=== PATIENT | female | born 1980 | race Caucasian/White ===

== ENCOUNTER 2018-10-18 15:11 | Observation (INO) | payer OTHER ==
[~2018-10-18] VITALS: Ht 170.2 cm; Wt 70.4 kg
[2018-10-18] MEDS ORDERED: SODIUM CHLORIDE 0.9% 1000ML 1,000 ML IV STA (15:29)
[2018-10-18] MEDS ORDERED: MORPHINE SULFATE INJ 4 MG/ML INJ 1ML IV ONE (16:00)
[2018-10-18] MEDS ORDERED: ONDANSETRON HCL INJ 2MG/ML 2ML 2 MG/ML VIAL IV ONE (16:00)
[2018-10-18] MEDS ORDERED: ASPIRIN 81 MG CHEW TAB PO ONE (16:00)
--- NOTE | 2018-10-18 16:25 | Diagnostic Imaging Report ---
EXAMINATION: CHEST SINGLE (PORTABLE) INDICATION: ^ERMD ORDER ^[id number] ^1552 ^Y COMPARISON: None FINDINGS: AP view TUBES and LINES: None. LUNGS: Lungs are well inflated. There is no evidence of pneumonia or pulmonary edema. PLEURA: No pleural effusion or pneumothorax. HEART AND MEDIASTINUM: The cardiomediastinal silhouette is unremarkable. BONES AND SOFT TISSUES: No acute osseous lesion. Soft tissues are unremarkable. UPPER ABDOMEN: No free air under the diaphragm. IMPRESSION: No acute thoracic abnormality. Signed by: Dr. Renato Dee MD on 10/18/2018 4:21 PM
[2018-10-18 16:28] LABS: BASOPHILS # (AUTO) 0.1 (0.0-0.1); BASOPHILS % 0.5 % (0.0-1.0); EOSINOPHILS # (AUTO) 0.3 (0.0-0.4); EOSINOPHILS % 2.3 % (0.0-6.0); HEMATOCRIT 40.5 % (34.2-44.1); HEMOGLOBIN 13.2 g/dL (12.0-16.0); LYMPHOCYTES # (AUTO) 4.8 (1.0-3.2); LYMPHOCYTES % 38.9 % (18.0-39.1); MEAN CORPUSCULAR HGB CONC 32.6 g/dL (31-35); MEAN CORPUSCULAR VOLUME 95.1 fL (81-99); MONOCYTES % 8.5 % (4.4-11.3); NEUTROPHILS # (AUTO) 6.1 (2.1-6.9); NEUTROPHILS % 49.2 % (38.7-80.0); PLATELET COUNT 439 x10e3/uL (140-360); RED BLOOD COUNT 4.26 x10e6/uL (3.6-5.1); RED CELL DISTRIBUTION WIDTH 11.9 % (11.7-14.4)
[2018-10-18 16:40] LABS: INR 0.79; PARTIAL THROMBOPLASTIN TIME 24.8 seconds (23.8-35.5); PROTHROMBIN TIME 11.4 seconds (11.9-14.5)
[2018-10-18 16:44] LABS: ALANINE AMINOTRANSFERASE 16 IU/L (0-55); ALBUMIN/GLOBULIN RATIO 1.2 (0.8-2.0); ALKALINE PHOSPHATASE 74 IU/L (40-150); ANION GAP 10.6 mmol/L (8-16); BLOOD UREA NITROGEN 10 mg/dL (7-26); BUN/CREATININE RATIO 13 (6-25); CALCIUM 9.7 mg/dL (8.4-10.2); CARBON DIOXIDE 25 mmol/L (22-29); CHLORIDE 107 mmol/L (98-107); CREATINE KINASE 54 IU/L (29-168); CREATININE, SERUM 0.78 mg/dL (0.57-1.11); EST GLOMERULAR FILTRATION RATE > 60 ML/MIN (60-); GLUCOSE 91 mg/dL (74-118); POTASSIUM 3.6 mmol/L (3.5-5.1); SODIUM 139 mmol/L (136-145)
[2018-10-18 16:45] LABS: BILIRUBIN,URINE NEGATIVE (NEGATIVE); CLARITY,URINE CLEAR (CLEAR); COLOR,URINE STRAW (YELLOW); KETONES,URINE NEGATIVE (NEGATIVE); LEUKOCYTE ESTERASE ,URINE NEGATIVE (NEGATIVE); NITRITE,URINE NEGATIVE (NEGATIVE); PREGNANCY TEST, URINE NEGATIVE (NEGATIVE); PROTEIN,URINE DIPSTICK NEGATIVE (NEGATIVE); URINE UROBILINOGEN 0.2 mg/dL (0.2 - 1)
[2018-10-18 17:09] LABS: THYROID STIMULATING HORMONE 0.459 uIU/mL (0.350-4.940)
--- NOTE | 2018-10-18 17:22 | NUR ---
Dewayne Bliss, GATE OPERATOR notified of pt's left side dropping, positive left arm drift, and left arm weakness. Pt's legs bilaterally are not noted to have weakness at this time. Pt reports having numbness in her left foot. Addendum: 10/18/18 at 1729 by MARIA DEL ROSARIO Left side facial drooping
[2018-10-18 17:48] LABS: EPITHELIAL CELLS,URINE MANY /LPF; WBC,URINE (MAN) 0-5 /HPF (0-5)
--- NOTE | 2018-10-18 18:36 | NUR ---
Pt is resting in bed comfortably; texting on her phone in her room at this time.
[2018-10-18] MEDS ORDERED: SODIUM CHLORIDE 0.9% 100 ML 100 ML ONE (18:43)
[2018-10-18] MEDS ORDERED: IOPAMIDOL 370 MG/ML 200 ML INFUS..BTL INJ ONE (18:44)
[2018-10-18] MEDS ORDERED: ONDANSETRON HCL INJ 2MG/ML 2ML 2 MG/ML VIAL IV PRN (19:00)
[2018-10-18] MEDS ORDERED: MORPHINE SULFATE INJ 4 MG/ML INJ 1ML IV PRN (19:00)
--- NOTE | 2018-10-18 19:09 | Diagnostic Imaging Report ---
Exam: Head CT without contrast History: Numbness, left facial droop Comparison studies: None Technique: Axial images were obtained from the skull base to the vertex. Coronal and sagittal images reconstructed from the axial data. Dose modulation, iterative reconstruction, and/or weight based adjustment of the mA/kV was utilized to reduce the radiation dose to as low as reasonably achievable. Radiation dose: Total DLP: 921 mGy*cm. Estimated effective dose: DLP x 0.015 Intravenous contrast: None Findings: Scalp: No abnormalities. Bones: No fractures, blastic or lytic lesions. Brain sulci: Appropriate for age. Ventricles: Normal in size and configuration. No hydrocephalus. Extra-axial spaces: No masses, no fluid collection. Parenchyma: No abnormal densities. No masses, hemorrhage, acute or chronic vascular insults. Sellar/suprasellar region: No abnormalities. Craniocervical junction: Patent foramen magnum. No Chiari one malformation. IMPRESSION: No acute intracranial abnormalities. Signed by: Dr. Hugo Perez M.D. on 10/18/2018 7:06 PM
--- OUTSIDE RECORDS SUMMARY | 2018-10-18 19:18 | XMS REPORT ---
Author Author [facility] Address Unknown Phone Unavailable Care Team Providers Care Brim Buster Name Role Phone Milagro ROD Unavailable Unavailable Problems This patient has no known problems. Allergies, Adverse Reactions, Alerts This patient has no known allergies or adverse reactions. Medications This patient has no known medications. Results Test Description Test Time Test Comments Text Results Atomic Results Result Comments CT BRAIN WO 2018-10-18 19:03:00 [facility] [address] [address] Patient Name: SIS CIFUENTES MR #: [id number] : 1980 Age/Sex: 38/F Req #: [id number] Adm Physician: Ordered by: OSMAN PANCHAL ETL TESTER Report #: [id number] Location: ER Room/Bed: Procedure: [id number] CT/CT BRAIN WO Exam Date: 10/18/18 Exam Time: 1730 REPORT STATUS: Signed Exam: Head CT without contrast History: Numbness, left facial droop Comparison studies: None Technique: Axial images were obtained from the skull base to the vertex. Coronal and sagittal images reconstructed from the axial data. Dose modulation, iterative reconstruction, and/or weight based adjustment of the mA/kV was utilized to reduce the radiation dose to as low as reasonably achievable. Radiation dose: Total DLP: 921 mGy*cm. Estimated effective dose: DLP x 0.015 Intravenous contrast: None Findings: Scalp: No abnormalities. Bones: No fractures, blastic or lytic lesions. Brain sulci: Appropriate for age. Ventricles: Normal in size and configuration. No hydrocephalus. Extra-axial spaces: No masses, no fluid collection. Parenchyma: No abnormal densities. No masses, hemorrhage, acute or chronic vascular insults. Sellar/suprasellar region: No abnormalities. Craniocervical junction: Patent foramen magnum. No Chiari one malformation. IMPRESSION: No acute intracranial abnormalities. Signed by: Dr. Mohit Perez M.D. on 10/18/2018 7:06 PM Dictated By: MOHIT PEREZ MD 05 Transcribed By: DEMETRI on 10/18/181905 COPY TO: OSMAN PANCHAL NP CHEST SINGLE (PORTABLE) 2018-10-18 16:21:00 [address] [address] Patient Name: SIS CIFUENTES MR #: [id number] : 1980 Age/Sex: 38/F Req #: [id number] Adm Physician: Ordered by: OSMAN PANCHAL ETL TESTER Report #: [id number] Location: ER Room/Bed: Procedure: [id number] DX/CHEST SINGLE (PORTABLE) Exam Date: 10/18/18 Exam Time: 1552 REPORT STATUS: Signed EXAMINATION: CHEST SINGLE (PORTABLE) INDICA TION: ERMD ORDER [id number] 1552 Y COMPARISON: None FINDINGS: AP view TUBES and LINES: None. LUNGS: Lungs are well inflated. There is no evidence of pneumonia or pulmonary edema. PLEURA: No pleural effusion or pneumothorax. HEART AND MEDIASTINUM: The cardiomediastinal silhouette is unremarkable. BONES AND SOFT TISSUES: No acute osseous lesion. Soft tissues are unremarkable. UPPER ABDOMEN: No free air under the diaphragm. IMPRESSION: No acute thoracic abnormality. Signed by: Dr. Renato Cabrera MD on 10/18/2018 4:21 PM Dictated By: RENATO CABRERA MD 162 Transcribed By: DEMETRI on 10/18/181620 COPY TO: OSMAN PANCHAL NP
--- NOTE | 2018-10-18 19:25 | NUR ---
Right AC 18 g catheter removed per pt request, without incident.
[2018-10-18] MEDS: NITROGLYCERIN 0.4 MG SUBL SL PRN (19:28)
[2018-10-18 19:32] LABS: AMPHETAMINES SCREEN,URINE NEGATIVE (NEGATIVE); BENZODIAZEPINES SCREEN,URINE NEGATIVE (NEGATIVE); PHENCYCLIDINE SCREEN,URINE NEGATIVE (NEGATIVE)
--- NOTE | 2018-10-18 19:45 | Diagnostic Imaging Report ---
EXAM: CTA of the Thoracic Aorta WITH Contrast INDICATION: Chest pain. Numbness. Facial droop. ^cp COMPARISON: None. TECHNIQUE: Multi-detector CT technology was employed. CTA nongated axial imaging of the chest was performed after the administration of IV contrast. IV CONTRAST: 100 mL Isovue-370 ORAL CONTRAST: None COMPLICATIONS: None RADIATION DOSE: Total DLP: 850.04 mGy*cm Estimated effective dose: (DLP x 0.015 x size factor) mSv Dose modulation, iterative reconstruction, and/or weight based adjustment of the mA/kV was utilized to reduce the radiation dose to as low as reasonably achievable. For optimization of anatomic evaluation, multiplanar reconstruction, maximum intensity projections, and advanced 3-D off-line postprocessing were performed on a dedicated stand-alone workstation under the direct supervision of the interpreting physician. FINDINGS: Potential study limitations: None. LINES/ TUBES: None. VASCULAR WITH ADVANCED 3-D OFF-LINE POSTPROCESSING: Aortic valve morphology is trileaflet and contains no calcifications. The thoracic aorta is normal in course, caliber, and contour. There is no acute aortic pathology, such as dissection, intramural hematoma, or contained rupture. Aortic plaques: None. The arch vessel branching pattern with left vertebral artery arising from the aortic arch. All of the arch branch vessels appear widely patent in their proximal portions. Beer Runner dimensions of the thoracic aorta are as follows: 2.4 cm at the aortic annulus 3.2 cm at the sinuses of Valsalva (the sinotubular junction is preserved) 3 cm at the mid ascending aorta 2.9 cm at the distal ascending aorta 2.5 cm at the mid transverse arch 2.6 cm at the proximal descending thoracic aorta 2.4 cm at the diaphragmatic hiatus. LUNGS AND AIRWAYS: Lungs are clear. Airways are patent. PLEURA: The pleural spaces are clear.. HEART AND MEDIASTINUM: Heterogeneous thyroid with nodules. No mediastinal, hilar or axillary lymphadenopathy. The main pulmonary artery is normal in size. The cardiac chambers demonstrate normal atrioventricular and ventriculoarterial concordance, and systemic and pulmonary venous return. The cardiac chambers are normal in size. The coronary arteries have normal origins and courses. There are no distinct coronary calcifications identified, though this study was not optimized for coronary artery evaluation. There is no pericardial effusion. LIMITED ABDOMEN: The limited images of the upper abdomen reveal no abnormalities of the visualized organs. Accessory left hepatic artery arising from the left gastric artery. Accessory left renal artery. BONES: No acute abnormalities. IMPRESSION: Normal thoracic aorta. There is no acute aortic pathology. No acute thoracic abnormalities. Thyroid nodules which may be further evaluated with nonemergent thyroid ultrasound. Signed by: DR. Slim Grey MD on 10/18/2018 7:41 PM
[2018-10-18] MEDS ORDERED: NITROGLYCERIN 2% OINT 1 GM PKT TOP ONE (20:00)
[2018-10-18] MEDS: FAMOTIDINE 20 MG/2 ML VIAL IV SCH (20:26)
[2018-10-18 20:40] VITALS: BP 137/92
--- NOTE | 2018-10-18 20:40 | NUR ---
Got report from CATY Palmer nurse. Patient came via stretcher and walked from stretcher to bed. at bedside. Call light within reach.
--- NOTE | 2018-10-18 21:24 | NUR ---
Dr. Viera came to see patient and talked to the patient. He placed an order for ECHO and Carotid and Lipitor [address] Ko. Dr. Damian talked to Dr. Ko about neuro consult.
[2018-10-19] VITALS (7 sets, daily range): BP systolic 111–126; BP diastolic 66–87
[2018-10-19] MEDS: NITROGLYCERIN 0.4 MG SUBL SL PRN (00:53)
--- NOTE | 2018-10-19 01:25 | Consultation ---
DATE OF CONSULTATION: Cardiology Consultation. I have been called for Cardiology consultation at the [facility] to see this patient an hour ago because of chest pain and left arm numbness. The patient is seen in the room and reviewed the chart. The patient came for the above symptom and also at the same time, she complained of weakness in left face. She is not able to smile properly, feels a dense feeling in the left lower half of the face. This all started about this evening and the patient has no prehistory of any cardiac issues. Does not go to the doctor's except she has four children. ALLERGIES: SHE ALLERGIC TO PENICILLIN. No history of myocardial infarction, hypertension, or diabetes mellitus. FAMILY HISTORY: Her father has heart disease at early age, not able to recall what age. The father had a heart issues. PHYSICAL EXAMINATION: At this time: HEART: Not enlarged. LUNGS: Normal. ABDOMEN: Normal . SKIN: Normal. NEUROLOGIC: There is no obvious weakness of the motor function except she complains of numbness in left forearm and fingers and also I can see the lower half of the left face weak. RADIOGRAPHS: Brain scan is normal. CAT scan of the brain is normal. IMPRESSION: At this time: 1. Chest pain, rule out ischemic heart disease because family history. Troponin is negative. 2. Get a neurological evaluation of the left lower half weakness. According to her, this is slightly subsiding, but is still present. 3. At this time, we will start the patient on aspirin 81 mg daily, Lipitor 10 mg once a day and also nitroglycerin paste and ordered echocardiogram, carotid duplex scan that will be done in the morning .I spoke with the neurologist about patient's left sided facial weakness,consult is also activated for Neurology. Thank you again for this consultation. MD JOANNA Case/JAVAN /[id number] ILDA
[2018-10-19 01:47] LABS: CREATINE KINASE 40 IU/L (29-168)
[2018-10-19 05:30] LABS: BASOPHILS % 0.4 % (0.0-1.0); EOSINOPHILS # (AUTO) 0.2 (0.0-0.4); EOSINOPHILS % 2.1 % (0.0-6.0); HEMATOCRIT 34.2 % (34.2-44.1); HEMOGLOBIN 11.2 g/dL (12.0-16.0); LYMPHOCYTES % 40.6 % (18.0-39.1); MEAN CORPUSCULAR HEMOGLOBIN 31.7 pg (28-32); MEAN CORPUSCULAR HGB CONC 32.7 g/dL (31-35); MEAN CORPUSCULAR VOLUME 96.9 fL (81-99); MONOCYTES % 10.1 % (4.4-11.3); NEUTROPHILS # (AUTO) 4.6 (2.1-6.9); NEUTROPHILS % 46.3 % (38.7-80.0); PLATELET COUNT 335 x10e3/uL (140-360); RED BLOOD COUNT 3.53 x10e6/uL (3.6-5.1)
[2018-10-19 05:51] LABS: ALANINE AMINOTRANSFERASE 14 IU/L (0-55); ALBUMIN 2.9 g/dL (3.5-5.0); ALBUMIN/GLOBULIN RATIO 1.1 (0.8-2.0); ALKALINE PHOSPHATASE 55 IU/L (40-150); ANION GAP 9.1 mmol/L (8-16); BLOOD UREA NITROGEN 7 mg/dL (7-26); BUN/CREATININE RATIO 10 (6-25); CALCIUM 8.6 mg/dL (8.4-10.2); CARBON DIOXIDE 23 mmol/L (22-29); CHLORIDE 111 mmol/L (98-107); CHOL/HDL RATIO 3.5 (3.0-3.6); CHOLESTEROL 159 MD/DL (0-199); CREATININE, SERUM 0.73 mg/dL (0.57-1.11); EST GLOMERULAR FILTRATION RATE > 60 ML/MIN (60-); GLUCOSE 99 mg/dL (74-118); HDL CHOLESTEROL 46 MG/DL (40-60); LDL CHOLESTEROL 89 MG/DL (60-130); POTASSIUM 4.1 mmol/L (3.5-5.1); SODIUM 139 mmol/L (136-145); TRIGLYCERIDES 120 MG/DL (0-149)
--- NOTE | 2018-10-19 07:09 | NUR ---
Gave report to oncoming nurse. Patient in bed. No pain or distress. call light within reach.
[2018-10-19 09:32] LABS: CREATINE KINASE MB 0.3 ng/mL (0-5.0)
[2018-10-19] MEDS ORDERED: ALPRAZOLAM 0.5 MG TAB PO ONE (10:30)
[2018-10-19] MEDS: FAMOTIDINE 20 MG/2 ML VIAL IV SCH ×2 (10:48→18:04)
[2018-10-19] MEDS: ASPIRIN 81 MG ENTERIC COATED PO SCH (10:48)
--- NOTE | 2018-10-19 11:58 | Diagnostic Imaging Report ---
Exam: Brain MRI without IV contrast History: Left-sided facial droop Comparison studies: Head CT 10/18/2018. Technique: Sagittal and axial T2 FS, axial DWI, axial T2*GRE, axial T1 FLAIR and axial coronal T2 FLAIR. Intravenous contrast: None Findings: Several pulse sequences are limited by artifacts related to patient motion. In spite of this limitation: Scalp: Normal in signal. No masses. Bone marrow: Normal in signal intensity. Brain sulci: Appropriate for age. Ventricles: Normal in size. No hydrocephalus. Extra axial spaces: No mass, no fluid collection. Parenchyma: No mass, hemorrhage or acute ischemia. A 3 mm T2 FLAIR hyperintense focus in the left precentral subcortical white matter is nonspecific but may minimal chronic microvascular ischemic changes, be [id number] in the appropriate clinical setting or reflect other nonspecific focal gliosis. Suprasellar region: No abnormalities. Craniocervical junction: Patent foramen magnum. No Chiari malformation. Vessels: Normal flow-voids in the arteries and sinuses. IMPRESSION: 1. No acute ischemia or other acute intracranial abnormalities. 2. Single nonspecific 3 mm focal left precentral subcortical signal abnormality as described. Signed by: Dr. Hugo Perez M.D. on 10/19/2018 11:55 AM
--- NOTE | 2018-10-19 17:42 | History and Physical ---
SUBJECTIVE AND CHIEF COMPLAINT: Chest pain, facial droop. HISTORY OF PRESENT ILLNESS: This is a 38-year-old female with no past medical history, comes into the ED with complaints of substernal chest pain that began on the left side. The patient reports chest pain began yesterday, started substernally, radiated to left shoulder and arm, it has progressively continued to get worse throughout the entire day. Denies any associated diaphoresis, nausea, or vomiting. While here in the hospital, she noticed that she was having difficulty speaking, had some facial droop on the left side and was worked up for stroke. CT brain was found to be negative. The patient is currently alert, oriented x3. Talking on exam with no issues. Chest pain is resolved. Cardiology and Neurology were consulted. During my evaluation, vital signs were stable. REVIEW OF SYSTEMS: Pertinent positives: Facial droop, chest pain, slurred speech. Pertinent negatives: Denies any palpitation, nausea, vomiting, diarrhea, dysuria, hematuria, frequency, urgency, lightheadedness, dizziness, abdominal pain, headaches, shortness of breath, cough, congestion, fever, or any other complaints. Rest of the 14-point review of systems are reviewed with the patient and are negative. ALLERGIES: PENICILLIN. HOME MEDICATIONS: None. PAST MEDICAL HISTORY: Reports none. SOCIAL HISTORY: No drugs or alcohol. She does not smoke. PAST SURGICAL HISTORY: None. FAMILY HISTORY: Hypertension and diabetes. LAB FINDINGS: Show white count is 9.9, hemoglobin 11.2, hematocrit 34, and platelets of 335. Coagulation, PT 11, INR 0.79, and PTT 24. D-dimer less than 100. Chemistry, sodium 139, potassium 4.1, chloride 111, bicarb 23, anion gap of 9, BUN 7, creatinine is 0.73, glucose 99, calcium is 8.6. Total bilirubin was 0.1, AST 15, ALT 14, and alkaline phosphatase 55. Troponins were all negative. Albumin was 2.9. LDL was 89. TSH is 0.459. Urinalysis negative. Toxicology screen: Urine drug screen was negative. Microbiology: Urine culture pending. IMAGING STUDIES: Chest x-ray was found to be negative. CT of the brain was negative. CTA of the chest shows normal thoracic aorta, otherwise negative findings. She does have some thyroid nodules, which we evaluated as an outpatient. PHYSICAL EXAMINATION: VITAL SIGNS: Temperature is 98.4, pulse 70, respiratory rate is 18, blood pressure 115/66, and pulse ox 97% on room air. GENERAL: Not in acute distress. Alert and oriented x3. Cooperative on examination. HEENT: Head is normocephalic and atraumatic. Eyes, pupils are equal, round, and reactive to light bilaterally. Extraocular movements are intact bilaterally. Throat, no evidence of erythema or exudates in the posterior pharynx. Has poor dentition. NECK: Supple. Good range of motion. PULMONARY: Clear to auscultation bilaterally. No wheezes, no rales, no rhonchi. No crackles appreciated. CARDIOVASCULAR: Positive S1, S2. No murmurs, rubs, or gallops appreciated. ABDOMEN: Soft, nondistended, nontender to palpation. Bowel sounds present. MUSCULOSKELETAL: Strength is 5/5 throughout. No evidence of any muscle deficits on examination. No weakness appreciated. NEUROLOGIC: Cranial nerves II through XII grossly intact. No evidence of any neurological deficits on exam. SKIN: Intact. Warm to touch. Good cap refill. PSYCHIATRIC: Normal affect and mood. EXTREMITIES: No edema. She has good motion throughout. IMPRESSION: 1. Chest pain, rule out ACS. 2. Facial droop with slurred speech, likely transient ischemic attack, rule out cerebrovascular accident. 3. Chronic smoker. PLAN: At this time, troponins are negative. 2D echo has been performed. Cardiology was consulted. In relation to her facial droop and slurred speech, Neurology was consulted. MRI has been scheduled. Carotid ultrasound will be ordered. She is on aspirin and statin. The patient is already eating. No need for speech therapy. The patient is ambulating as well. Lipid panel has been performed. Otherwise, once she has been cleared by the above consultants, the patient will be discharged home. MD DIDIER Hutchins/JAVAN /[id number]
--- NOTE | 2018-10-19 18:57 | NUR ---
Got report from previous nurse. Call contreras within reach. at bedside.
--- NOTE | 2018-10-19 18:57 | Progress Note ---
DATE: Cardiology Progress Note. The patient is seen in the room. At this time, the patient does not have any chest pain, but according to her, facial droop was better this morning. Again this afternoon, she feels it increased little more at this time. However, the patient still has some weakness in the lower part of the face and Neurology has seen the patient. There is a possibility it could be also a minor Marcial's palsy, however, we have to rule out the possibility of transient ischemic attacks. Also, the patient has a strong family history of heart problem in the father. Father has some cardiac surgeries done and also he had a Watchman device put in because of atrial fibrillation and also father appears to have had probably cardiomyopathy and coronary artery disease. The patient's echocardiogram shows ejection fraction is 40%. I discussed with her decrease of the ejection fraction may be related to the alcohol. If she is taking excess alcohol, she has to stop drinking alcohol at this time because of strong family history and a low ejection fraction and a chest pain. I am ordering a Lexiscan nuclear stress test tomorrow. The patient is agreeable to have a stress test tomorrow and after that if it is normal, we will send her home. The patient is deemed stable. MD JOANNA Case/JAVAN /[id number] ILDA
--- NOTE | 2018-10-19 20:23 | Consultation ---
DATE OF CONSULTATION: 10/19/2018 NEUROLOGY CONSULT NOTE HISTORY OF PRESENT ILLNESS: Ms. Barone is a 38-year-old right hand dominant woman without significant past medical history, admitted to [facility] on October 18, 2018 with chest pain and left facial weakness. Neurology consultation is requested to evaluate the left facial weakness. Ms. Barone presented to the emergency center at [facility] on the afternoon of October 18, 2018 with chest pain. While in the emergency center, the patient developed weakness over the left side of her face. This was first noted sometime between 1245 and 1300 on October 18, 2018. The acuity of the facial weakness is unknown. However, the patient's fiancee reports the facial weakness appeared to gradually worsen while the patient was in the emergency room. Ms. Barone does endorse blurred vision bilaterally, which is not worsened with the facial weakness. She is uncertain as to whether or not there has been a change in taste. The patient reports no change in her hearing, but does report a left ear ache. Ms. Barone does not report a viral exanthem over the left side of her face or in or around her left ear. The patient does report dysarthria, but not aphasia. She does endorse a mild left hemiparesis. She reports numbness and mild tingling over the left V3 distribution. She reports tingling over the left medial forearm and all fingers of the left hand. Ms. Barone does not report impairment of balance or gait, dizziness, or confusion. Upon arrival in the emergency center, the patient was afebrile with a blood pressure of 130/93 mmHg and a pulse of 110 beats per minute. Her neurological examination was significant for left facial weakness. While in the emergency center, CT of the brain without contrast was performed. This study did not reveal evidence of recent large territorial ischemia, hemorrhage, mass, or mass effect. Ms. Barone was admitted to [facility] under observation status for further evaluation and treatment of her symptoms. The patient has not experienced similar symptoms previously. REVIEW OF SYSTEMS: Chest pain, earache affecting the left ear, blurred vision affecting both eyes, dysarthria, left facial weakness and numbness, left hemiparesis, tingling of the left arm. Otherwise, a 12-point review of systems is negative. PAST MEDICAL HISTORY: Benign colon polyps. PAST SURGICAL HISTORY: Resection of benign colon polyps, multiple uterine biopsies. PAST HOSPITALIZATIONS: Surgeries/procedures as listed, childbirth. FAMILY MEDICAL HISTORY: Hypertension, coronary artery disease, breast cancer in two maternal aunts. SOCIAL HISTORY: Ms. Barone is engaged. She works in retail/sales. The patient does report tobacco use. She has smoked 1/2 to 1 pack per day for the past 20+ years. The patient consumes alcohol approximately three times per week. The patient does not report current or prior recreational drug use. HOME MEDICATIONS: None. HOSPITAL MEDICATIONS: Aspirin, atorvastatin, Pepcid, morphine, Zofran. ALLERGIES: PENICILLIN. OYSTERS, SEAWEED. THERE ARE NO KNOWN ALLERGIES TO LATEX. NO KNOWN ALLERGIES TO IODINE OR OTHER CONTRAST MATERIALS. PHYSICAL EXAMINATION: VITAL SIGNS: Height 67 inches, weight 150 pounds, BMI 25.1 kg/m2, blood pressure 126/67 mmHg, pulse 78 beats per minute, respiratory rate 16 breaths per minute, oxygen saturation 100% on room air. GENERAL: The patient is awake and alert, does not appear distressed. HEENT: Normocephalic, atraumatic. Pupils are equal, round, and reactive to light. Moist mucous membranes. NECK: Supple. No appreciable thyromegaly. No appreciable carotid bruits. CARDIOVASCULAR: S1, S2, regular rate and rhythm. No murmurs, rubs, or gallops. RESPIRATORY: Clear to auscultation bilaterally. No wheezes, rhonchi, or rales. EXTREMITIES: The skin is warm and dry. No clubbing, cyanosis, or edema. The posterior tibial and dorsalis pedis pulses are 2+ and symmetric. SKIN: No rashes or lesions. NEUROLOGIC: Memory/attention: The patient is awake and alert, oriented to person, place, time, and situation. Cranial nerves: Cranial nerve I - not tested. Cranial nerve II, III, IV, and - pupils are equal and round, react briskly to light (from 4 mm to 2 mm). Extraocular movements intact. No nystagmus. Cranial nerve V - sensation to light touch and pinprick is intact in the bilateral V1 through V3 distributions. Strength in the temporalis and masseter muscles is within normal limits. Cranial nerve VII - the face is asymmetric on the left as are all facial movements. There is mild peripheral left facial weakness with some exaggeration by the patient. Cranial nerve VIII - hearing is increased to finger rub on the left. Cranial nerve IX, X - the soft palate elevates equally and symmetrically. Cranial nerve XI - normal strength of the bilateral sternocleidomastoid and trapezius muscles. Cranial nerve XII - the tongue protrudes midline and moves symmetrically from [id number]. Strength: Bulk is normal. Strength is 5/5 in the bilateral deltoids, biceps, triceps, wrist flexors and extensors, finger flexors and extensors, intrinsic hand muscles, hip flexors, knee flexors and extensors, ankle dorsiflexion and plantar flexion, and intrinsic foot muscles. Initially, there is effort, dependent weakness in multiple muscles examined in the left arm and left leg. This improved significantly with encouragement. Tone is normal. DTRs: Deep tendon reflexes are 2+ and symmetric at the triceps, biceps, brachioradialis, patellas, and Achilles. Plantar responses are flexor bilaterally. Sensation: Sensation is intact to light touch and pinprick in both arms and both legs. Cerebellar: [id number]-ryhn-nyjpun and heel-hawkins movements are intact without dysmetria or other impairment. Gait: Deferred. Speech: Spontaneous speech is very mildly dysarthric without aphasia. Repetition is intact. Involuntary movements: None. Pronator Drift: None. LABORATORY DATA: A comprehensive metabolic panel is significant for mildly elevated chloride of 111, total bilirubin of 0.1, total protein of 5.6, an albumin of 2.9. Cardiac enzymes are negative x3. B-natriuretic peptide is 26.9. Total cholesterol 159, triglycerides 120, LDL cholesterol 89, HDL cholesterol 46. TSH 0.459. The CBC with differential and platelets reveals a white blood cell count of 9.90 with a right shift with 46.3% neutrophils, 40.6% lymphocytes, 10.1% monocytes, 2.1% eosinophils, and 0.4% basophils. The hemoglobin and hematocrit are 11.2 and 34.2, respectively. The platelet count is 335. PT 11.4, INR 0.79, PTT 24.8. D-dimer quantitative less than 100. A urinalysis was unremarkable. A urine drug screen was negative. A urine culture is pending. DIAGNOSTIC STUDIES: 1. Electrocardiogram on 10/18/2018: Sinus rhythm at 89 beats per minute with a shortened p.r.n. interval. 2. Chest x-ray on 10/18/2018: No acute thoracic abnormality. 3. CT of the brain without contrast on 10/18/2018: On my review, there is no evidence of recent large territorial ischemia, hemorrhage, mass, or mass effect. Cerebral volumes are appropriate for age. There are no findings compatible with chronic small vessel ischemic disease. 4. CTA of the chest/thorax on 10/18/2018: Normal thoracic aorta. There is no acute aortic pathology. No acute thoracic abnormalities. Thyroid nodules which may be further evaluated with nonemergent thyroid ultrasound. 5. Echocardiogram on 10/19/2018: Ejection fraction 45% to 50%. Trace mitral and tricuspid regurgitation. 6. Bilateral carotid artery ultrasound with Doppler on 10/19/2018: There is no atherosclerosis in either carotid artery system. Flow is antegrade in the bilateral vertebral arteries. 7. MRI of the brain without contrast on 10/19/2018: On my review, there is no evidence of recent large territorial ischemia, hemorrhage, mass, or mass effect. There is no evidence of remote ischemia or hemorrhage. Cerebral volumes are appropriate for age. There is a single T2/FLAIR hyperintense foci in the left precentral subcortical region of nonspecific etiology. ASSESSMENT AND PLAN: Ms. Barone is a 38-year-old woman without significant past medical history, admitted to [facility] on October 18, 2018 with chest pain and left facial weakness. The patient's neurological examination is significant for mild peripheral left facial weakness with some exaggeration by the patient. Otherwise, the neurological examination is nonfocal. The patient's laboratory data and other diagnostic studies have been reviewed and are documented above. 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 The diagnosis was discussed in detail with the patient and her fiancee, who was at the bedside. Ms. Barone will be treated with a tapering dose of prednisone as prescribed and placed in the patient's chart. Ms. Barone was informed it may take 6 to 8 weeks for the symptoms to improve/resolve. Thank you for this consultation. There are no other recommendations from the Neurology service at this time. Please call again with any questions or concerns. Estefania Ko MD CP/JAVAN /[id number] [id number]
[2018-10-19] MEDS ORDERED: ATORVASTATIN 10 MG TAB PO SCH (21:00)
--- NOTE | 2018-10-19 21:29 | NUR ---
Called and talked to Dr. Denise, patient wants something for sleep, Dr. Denise ordered melatonin, 5 mg, HS PRN.
[2018-10-19] MEDS ORDERED: MELATONIN 5 MG TABLET PO PRN (21:30)
[2018-10-20] VITALS: BP 106/65
[2018-10-20 01:41] VITALS: BP 106/65
[2018-10-20 04:00] VITALS: BP 119/78
--- NOTE | 2018-10-20 07:09 | NUR ---
Report given to oncoming nurse. Call light within reach. fiance at bedside.
--- NOTE | 2018-10-20 07:18 | NUR ---
PATIENT IN BED RESTING WITH NO RESPIRATORY DISTRESS. REMAINS NPO FOR STRESS TEST. BED IN LOWER POSITION, CALL LIGHT AT REACH.
[2018-10-20 07:20] VITALS: BP 139/88
[2018-10-20] MEDS: FAMOTIDINE 20 MG/2 ML VIAL IV SCH (07:50)
[2018-10-20 08:30] VITALS: BP 139/88
[2018-10-20] MEDS ORDERED: REGADENOSON 0.4 MG/5 ML SYR IV ONE (08:47)
--- NOTE | 2018-10-20 11:25 | NUR ---
PATIENT OFF UNIT FOR A STRESS TEST.
--- NOTE | 2018-10-20 13:30 | NUR ---
PATIENT BACK TO UNIT . HAD A STRESS TEST. ALERT AND VERBALLY RESPONSIVE, SITTING UP IN BED TALKING TO FAMILY MEMBER. BED IN LOWER POSITION, CALL LIGHT AT REACH. V/S 97.4-87-18-121/79 AND 99% ON RA.
[2018-10-20] MEDS: ASPIRIN 81 MG ENTERIC COATED PO SCH (15:00)
--- NOTE | 2018-10-20 15:46 | NUR ---
PATIENT ASSISTED WITH SHOWER, LINEN CHANGED. IN BED WITH CALL LIGHT AT REACH.
[2018-10-20 16:00] VITALS: BP 134/88
--- NOTE | 2018-10-20 16:00 | NUR ---
CALL PLACED TO TECHNICAL SERVICE ENGINEER REGARDING CLARIFICATION FOR DISCHARGE. MESSAGE LEFT TO ANSWERING STAFF.
--- NOTE | 2018-10-20 17:14 | NUR ---
SECOND CALL PLACED TO CLAY ROASTER, AWAITING CALL BACK.
--- NOTE | 2018-10-20 17:19 | NUR ---
CALL BACK RECEIVED FROM CARDIOLOGY WHO GAVE THE OK TO DISCHARGE PATIENT.
[2018-10-20] MEDS ORDERED: ASPIR 8181 MG PO (17:54)
[2018-10-20] MEDS ORDERED: LIPITOR20 MG PO (17:55)
--- NOTE | 2018-10-20 18:55 | NUR ---
PATIENT DISCHARGED HOME. DISCHARGE INSTRUCTIONS, PRESCRIPTIONS, AND FOLLOW UP GIVEN TO PATIENT, SHE VERBALIZED UNDERSTANDING. IV TO LEFT AC REMOVED WITH TIP INTACT. ALL PERSONAL ITEMS TAKEN WITH PATIENT. PATIENT REFUSED WHEEL CHAIR, BUT WAS ACCOMPANY TO FRONT LOBBY BY A HOSPITAL STAFF IN STABLE CONDITION.
--- NOTE | 2018-10-22 09:11 | Discharge Summary ---
FINAL DISCHARGE DIAGNOSES: 1. Left facial Marcial's palsy. 2. Atypical chest pain. 3. Chronic smoker. CONSULTANTS: Neurology and Cardiology. PHYSICAL EXAMINATION: VITAL SIGNS: Temperature 96.8, pulse 92, respiratory rate 16, blood pressure 134/88, and pulse ox 99% on room air. LAB FINDINGS: Show white count 9.9, hemoglobin 11.2, hematocrit 34, and platelets of 335. Coagulation, PT 11, INR 0.79. D-dimer is less than 100. PTT 24. Chemistry, sodium 139, potassium 4.1, chloride 111, bicarb 23, anion gap of 9, BUN 7, creatinine 0.7, glucose 99, calcium 8.6, total bilirubin is 0.1. LFTs were normal. Troponins were all negative. Albumin 2.9. LDL is 89. TSH is 0.459. Urinalysis was found to be negative. Urine drug screen found to be negative. Microbiology, urine culture was negative. IMAGING STUDIES: Chest x-ray was found to be negative. CT of the brain was also negative. CT chest and thorax CTA showed no evidence of pulmonary embolism. There is no evidence of any dissection. No acute thoracic abnormality seen. Carotid ultrasound found to be within normal range. A 2D echo with a normal EF. Cardiac stress test was found to be normal according to Cardiology. HOSPITAL COURSE: This is a 38-year-old female, who came into the ED with left-sided facial droop and underlying chest pain. In relation to her left facial droop, Neurology was consulted. All imaging studies were performed, found to be negative. MRI of the brain was also found to be negative. It was felt that the patient likely has left facial Marcial's palsy. The patient was given tapering doses of steroids upon discharge. The patient reports feeling much better now. The patient has been cleared by Neurology standpoint. In relation to her chest pain, cardiac enzymes were negative, 2D echo was found to be within normal range, and cardiac stress test was also found to be within normal range. Cardiology cleared the patient for discharge home. The patient had no more complaints of chest pain prior to being discharged home. The patient has been cleared by Cardiology and Neurology for discharge. On the day of discharge, vital signs stable, labs remained stable. The patient seen, evaluated, examined thoroughly on the day of discharge. No other complaints. The patient verbalized understanding and agreed to plan of care to follow up as an outpatient with her PCP in 1 week and the Cardiology and neurologist in 2 weeks' time. MEDICATIONS: See med reconciliation form including steroid tapering as per Neurology recommendations. CONDITION: Stable. DIET: Heart healthy. In the event of any worsening symptoms, the patient was advised to come back to the ED for further evaluation. Discharge summary took greater than 35 minutes. MD DIDIER Hutchins/JAVAN /[id number]
== END 2018-10-20 18:49 | disposition home or self-care (01) ==
LOC: ER 15:11 → ERHOLD 19:15 → IMCU 20:39
PROVIDERS: ADMIT Internal Medicine; ATTEND Internal Medicine
DX: G51.0 Bell's palsy (principal); R07.89 Other chest pain; R68.84 Jaw pain; Z86.010 Personal history of colon polyps; Z88.0 Allergy status to penicillin; Z82.49 Family history of ischemic heart disease and other diseases of the circulatory system; F17.210 Nicotine dependence, cigarettes, uncomplicated
CPT/HCPCS: 36415 ×2; 70450; 70551; 71045; 71275; 78452; 80053 ×2; 80061; 80307; 81001; 81025; 82550 ×2; 82553 ×2; 83880; 84443; 84484 ×2; 85025 ×2; 85379; 85610; 85730; 87086; 93005; 93017; 93306; 93880; 99284; A9502; G0378 ×3; J2270 ×2; J2405; J2785; J7030; Q9967

== ENCOUNTER 2022-10-05 11:24 | Emergency (ER) | payer BC ==
[~2022-10-05] VITALS: Ht 172.7 cm; Wt 76.2 kg
[~2022-10-05 11:24] MED LIST: ASPIR 8181 MG PO; LIPITOR20 MG PO
[2022-10-05] MEDS ORDERED: FLUORESCEIN SOD(OPTH) 1 MG STRP OP ONE (11:45)
[2022-10-05] MEDS ORDERED: HYDROXYZINE HCL 25 MG TAB PO ONE (11:45)
[2022-10-05] MEDS ORDERED: TETRACAINE HCL 0.5% OPTH SOLN 4 ML BTL OP ONE (11:45)
[2022-10-05 12:08] LABS: BASOPHILS # (AUTO) 0.1 (0.0-0.1); BASOPHILS % 0.4 % (0.0-1.0); EOSINOPHILS # (AUTO) 0.2 (0.0-0.4); EOSINOPHILS % 1.4 % (0.0-6.0); HEMATOCRIT 38.4 % (34.2-44.1); HEMOGLOBIN 12.5 g/dL (12.0-16.0); LYMPHOCYTES # (AUTO) 3.5 (1.0-3.2); LYMPHOCYTES % 24.5 % (18.0-39.1); MEAN CORPUSCULAR HEMOGLOBIN 30.9 pg (28-32); MEAN CORPUSCULAR HGB CONC 32.6 g/dL (31-35); MEAN CORPUSCULAR VOLUME 94.8 fL (81-99); MONOCYTES % 7.4 % (4.4-11.3); NEUTROPHILS # (AUTO) 9.2 (2.1-6.9); NEUTROPHILS % 65.4 % (38.7-80.0); PLATELET COUNT 409 x10e3/uL (140-360); RED BLOOD COUNT 4.05 x10e6/uL (3.6-5.1); RED CELL DISTRIBUTION WIDTH 12.2 % (11.7-14.4)
[2022-10-05] MEDS ORDERED: ALPRAZOLAM 0.25 MG TAB PO ONE (12:15)
[2022-10-05 12:29] LABS: ALBUMIN 3.7 g/dL (3.5-5.0); ALBUMIN/GLOBULIN RATIO 1.2 (0.8-2.0); ANION GAP 13.8 mmol/L (8-16); CREATININE, SERUM 0.76 mg/dL (0.57-1.11); POTASSIUM 3.8 mmol/L (3.5-5.1)
[2022-10-05] MEDS ORDERED: CYCLOPENTOLATE HCL 1% OPTH SOLN 2ML BTL OD ONE (13:15)
[2022-10-05] MEDS ORDERED: VIGAMOX3 ML OD (13:17)
[2022-10-05] MEDS ORDERED: MOXIFLOXACIN HCL(OPTH) 3 ML BTL OP SCH (13:45)
== END 2022-10-05 13:54 | disposition home or self-care (01) ==
LOC: MERGE 11:29 → ER 11:29
DX: H53.9 Unspecified visual disturbance (principal); H20.9 Unspecified iridocyclitis; F41.9 Anxiety disorder, unspecified; R94.31 Abnormal electrocardiogram [ECG] [EKG]
CPT/HCPCS: 36415; 70450; 80053; 85025; 93005; 99284